=== PATIENT | female | born 1995 | race Two or more races ===

== ENCOUNTER 2019-03-08 21:01 | Emergency (ER) | payer OTHER, SELFPAY ==
[~2019-03-08] VITALS: Ht 167.6 cm; Wt 69.9 kg
[~2019-03-08 21:01] MED LIST: CIPRO500 MG PO; FERROUS SULFAT325 MG ORAL
[2019-03-08] MEDS ORDERED: NKM (21:09)
[2019-03-08 21:20] VITALS: BP 138/73
--- NOTE | 2019-03-08 21:20 | NUR ---
ER Nurse Note: Pt came from home c/o HR of 110. Pt stated she has off and on palpitations and was worried about the causes of this. Pt denies chest pain but complains about discomfort and a funny feeling in chest. Pt stated this has been happening for few months. Pt a&ox4, VSS, on RA, no signs of distress. HR in triage, 85bpm. Will continue to montior.
--- NOTE | 2019-03-08 21:22 | Emergency Room Report ---
History of Present Illness General Chief Complaint: General Complaint Source: Patient Present Illness HPI This is a 23-year-old female with history of anemia in the past. She presents with chief complaint of palpitation. His been intermittently the last couple months. She does not have any symptoms now. She denies any fever chills. Denies any nausea vomiting. No lightheadedness or syncopal episode. Has not seen a primary care doctor for this. Allergies: Coded Allergies: No Known Allergies (Unverified , 09/11/14) Patient History Past Medical History: none, see triage record, old chart reviewed Past Surgical History: none Pertinent Family History: none Social History: Denies: smoking Last Menstrual Period: 02/08/19 Now: No Immunizations: other Reviewed Nursing Documentation: PMH: Agreed; PSxH: Agreed Nursing Documentation-PMH Past Medical History: No Stated History Review of Systems Eye: Denies: eye pain, blurred vision ENT: Denies: ear pain, nose congestion, throat swelling Respiratory: Denies: cough, shortness of breath Cardiovascular: Reports: palpitations; Denies: chest pain Gastrointestinal: Denies: abdominal pain, diarrhea, nausea, vomiting Musculoskeletal: Denies: back pain, joint pain Skin: Denies: rash Neurological: Denies: headache, numbness Endocrine: Denies: increased thirst, increased urine Hematologic/Lymphatic: Denies: easy bruising All Other Systems: negative except mentioned in HPI Physical Exam Vital Signs Date Time Temp Pulse Resp B/P (MAP) Pulse Ox O2 Delivery O2 Flow Rate FiO2 03/08/19 21:03 98.4 85 18 98 Room Air vitals normal Sp02 EP Interpretation: reviewed, normal General Appearance: well appearing, no apparent distress, alert Head: normocephalic, atraumatic Eyes: bilateral eye PERRL, bilateral eye EOMI ENT: hearing grossly normal, normal pharynx Neck: full range of motion, supple, no meningismus Respiratory: chest non-tender, lungs clear, normal breath sounds Cardiovascular #1: regular rate, rhythm, no murmur Gastrointestinal: normal bowel sounds, non tender, no mass, no organomegaly, no bruit, non-distended Musculoskeletal: back normal, gait/station normal, normal range of motion Psychiatric: mood/affect normal Skin: warm/dry Medical Decision Making Diagnostic Impression: Primary Impression: Palpitations ER Course Patient presents with palpitation. Heart rate normal here. Since sinus. No ectopies. She may need a Holter monitor. We'll discharge home. EKG Diagnostic Results Rate: normal Rhythm: NSR ST Segments: no acute changes ASA given to the pt in ED: No Last Vital Signs Date Time Temp Pulse Resp B/P (MAP) Pulse Ox O2 Delivery O2 Flow Rate FiO2 03/08/19 21:03 98.4 85 18 98 Room Air Status: improved Disposition: HOME, SELF-CARE Condition: Stable Additional Instructions: Follow-up with your doctor in a week. You may need a referral to see a director statistical programming for a Holter monitor. Return if symptom worsen. Andrew Virgen MD March 08, 2019 21:22
[2019-03-08] MEDS ORDERED: Bacitracin Oint UD TOPIC ONE (21:31)
[2019-03-08 21:55] LABS: APPEARANCE,URINE CLEAR; BILIRUBIN, URINE NEGATIVE (NEGATIVE); COLOR,URINE PALE YELLOW; GLUCOSE, URINE (UA) NEGATIVE (NEGATIVE); KETONES,URINE NEGATIVE (NEGATIVE); LEUKOCYTE ESTERASE ,URINE 1+ (NEGATIVE); NITRITE,URINE NEGATIVE (NEGATIVE); PH,URINE 6 (4.5-8.0); PROTEIN,URINE NEGATIVE (NEGATIVE); UROBILINOGEN,URINE NORMAL MG/DL (0.0-1.0)
[2019-03-08 21:57] LABS: BASOPHILS % (AUTO) 1.7 % (0.0-2.0); HEMATOCRIT 36.4 % (37.0-47.0); HEMOGLOBIN 12.5 G/DL (12.0-16.0); LYMPHOCYTES % (AUTO) 24.3 % (20.0-45.0); MEAN CORPUSCULAR VOLUME 85 FL (80-99); MONOCYTES % (AUTO) 13.7 % (1.0-10.0); NEUTROPHILS % (AUTO) 59.3 % (45.0-75.0); PLATELET COUNT 256 K/UL (150-450); RED BLOOD COUNT 4.28 M/UL (4.20-5.40); RED CELL DISTRIBUTION WIDTH 11.9 % (11.6-14.8); WHITE BLOOD COUNT 10.7 K/UL (4.8-10.8)
[2019-03-08 22:30] VITALS: BP 148/74
--- NOTE | 2019-03-08 22:30 | NUR ---
ER Nurse Note: All orders completed per ERMD orders. Pt seen, treated, medically cleared for discharge by ERMD. Discharge instructions and prescriptions given with repeat verbazliaion by pt. Instructed pt to follow up with primary care provider within one week. Pt a&ox4, VSS, no signs of distress; denies chest pain and HR 82. ID band removed. IV removed; site clean and bandaged. Pt left with all belongings with steady gait via own transportation.
[2019-03-09 03:16] VITALS: BP 148/74
--- NOTE | 2019-03-09 17:35 | Cardiology Report ---
APPROVED REPORT EKG Measurement Heart [id number] Normal sinus rhythm with sinus arrhythmia Normal ECG
== END 2019-03-08 22:30 | disposition home or self-care (01) ==
LOC: EMR 21:30
DX: R00.2 Palpitations (principal)
CPT/HCPCS: 36415; 81003; 81025; 85025; 93005; 99283

== ENCOUNTER 2019-08-24 18:11 | Emergency (ER) | payer OTHER ==
[~2019-08-24] VITALS: Ht 167.6 cm; Wt 70.3 kg
[~2019-08-24 18:11] MED LIST changes: +NKM
[2019-08-24 18:17] VITALS: BP 127/78
--- NOTE | 2019-08-24 18:17 | NUR ---
ED Nurse Note: Patient walked into Ed c/o flu like symptoms for the past week, patient states that she had an elevated temp of 100.2 earlier this morning, patient states that he took tylenol earlier, at time of arrival patient does not present with a fever however is complaining of generalized weakness accompanied by a productive cough, patient does present with an elevated heart rate of 108. patient is resting in hallway bed in no distress, complains of a mild headache that she rates a 3/10 pain. will continue to monitor
[2019-08-24 18:45] VITALS: BP 127/78
--- NOTE | 2019-08-24 18:45 | NUR ---
ER DISCHARGE NOTE: Patient is cleared to be discharged per ERMD, pt is aox4, on room air, with stable vital signs. pt was given dc and prescription instructions, pt was able to verbalize understanding, pt id band removed without complications. pt is able to ambulate with steady gait. pt took all belongings.
--- NOTE | 2019-08-24 19:08 | Emergency Room Report ---
History of Present Illness General Chief Complaint: Flu Like Symptoms Source: Patient Present Illness HPI 24 YO Female presents to the ED c/o persistent cough x 1 week with new onset of fever of 100.2 at home and 3/10 in severity body aches with chills. Pt. reports sister has similar symptoms. Denies recent travel. Denies smoking hx, reports hx of asthma as a child. Pt. is UTD with vaccinations except for the flu vaccine. NO aggravating or relieving factors. Denies neck pain/stiffness, ear pain, ST, runny nose or nasal congestion. Allergies: Coded Allergies: PENICILLINS (Verified Allergy, Unknown, 08/24/19) Patient History Past Medical History: see triage record Past Surgical History: none Pertinent Family History: none Last Menstrual Period: 07/28/19 Immunizations: UTD Reviewed Nursing Documentation: PMH: Agreed; PSxH: Agreed Nursing Documentation-PMH Past Medical History: No Stated History Review of Systems All Other Systems: negative except mentioned in HPI Physical Exam Vital Signs Date Time Temp Pulse Resp B/P (MAP) Pulse Ox O2 Delivery O2 Flow Rate FiO2 08/24/19 18:14 99.3 108 16 127/78 (94) 97 Room Air Sp02 EP Interpretation: reviewed, normal General Appearance: well appearing, no apparent distress, alert, GCS 15, non- toxic Head: normocephalic, atraumatic Eyes: bilateral eye normal inspection, bilateral eye PERRL ENT: hearing grossly normal, normal pharynx, normal voice, TMs + canals normal , uvula midline, moist mucus membranes Neck: full range of motion, no meningismus, no bony tend Respiratory: chest non-tender, lungs clear, normal breath sounds, no respiratory distress, no accessory muscle use, no wheezing, speaking full sentences Cardiovascular #1: regular rate, rhythm, tachycardia Musculoskeletal: back normal, gait/station normal, normal range of motion, non- tender Neurologic: alert, oriented x3, responsive, motor strength/tone normal, sensory intact, normal gait, speech normal, grossly normal Psychiatric: judgement/insight normal Skin: no rash Lymphatic: no adenopathy Medical Decision Making PA Attestation Dr. Brown is my supervising Physician whom patient management has been discussed with. Diagnostic Impression: Primary Impression: Viral upper respiratory tract infection with cough ER Course 24 YO Female presents to the ED c/o persistent cough x 1 week with new onset of fever of 100.2 at home and 3/10 in severity body aches with chills. Pt. reports sister has similar symptoms. Denies recent travel. Denies smoking hx, reports hx of asthma as a child. Pt. is UTD with vaccinations except for the flu vaccine. NO aggravating or relieving factors. Denies neck pain/stiffness, ear pain, ST, runny nose or nasal congestion. Ddx considered but are not limited to URI, pneumonia, PE, strep pharyngitis, meningitis. Vital signs: Pt. is afebrile, she has mild tachycardia at 108bpm in triage, the remaining VS are WNL H&PE are most consistent with URI- no meningeal signs, oropharynx is not involved, no evidence of bacterial infection at this time. ORDERS: none required at this time, the diagnosis is clinical ED INTERVENTIONS: None required at this time. --PT. EDUCATION: Discussed antibiotic resistance with inappropriate prescribing of antibiotics for viral illnesses. Discussed signs and symptoms to indicate viral illness versus bacterial illness. DISCHARGE: At this time pt. is stable for d/c to home. Will provide printed patient care instructions, and any necessary prescriptions. Care plan and follow up instructions have been discussed with the patient prior to discharge. Last Vital Signs Date Time Temp Pulse Resp B/P (MAP) Pulse Ox O2 Delivery O2 Flow Rate FiO2 08/24/19 18:14 99.3 108 16 127/78 (94) 97 Room Air Disposition: HOME, SELF-CARE Condition: Stable Scripts Ibuprofen* (MOTRIN*) 600 Mg Tablet 600 MG ORAL THREE TIMES A DAY, #30 TAB 0 Refills Prov: Claritza Gomes 08/24/19 Benzonatate* (TESSALON PERLE*) 100 Mg Capsule 100 MG ORAL THREE TIMES A DAY, #15 PERLE Prov: Claritza Gomes 08/24/19 Albuterol Sulfate* (ALBUTEROL SULFATE MDI*) 8.5 Gm Hfa.aer.ad 2 PUFF INH Q6H, #1 INH 0 Refills Prov: Claritza Gomes 08/24/19 Codeine/Promethazine Hcl* (PROMETHAZINE-CODEINE SYRUP*) 118 Ml Syrup 5 ML ORAL Q6H PRN for For Cough, #120 ML 0 Refills Prov: Claritza Gomes 08/24/19 Departure Forms: Return to Work Return to Work Date: Aug 28, 2019 Work Restrictions: None Other Restrictions: May return Sooner if Symptoms have resolved. Return to Full Activity: Aug 28, 2019 Patient Instructions: Viral Respiratory Infection Additional Instructions: Take medications as directed. Follow up with a Primary Care Provider in 3-5 days, even if your symptoms have resolved. --Please review list of primary care clinics, if you do not already have a primary care provider Return sooner to ED if new symptoms occur, or current symptoms become worse. Do not drink alcohol, drive, or operate heavy machinery while taking Cough Syrup as this may cause drowsiness. - Please note that this Emergency Department Report was dictated using [employer] administrative services technology software, occasionally this can lead to erroneous entry secondary to interpretation by the dictation equipment. Claritza Gomes Aug 24, 2019 19:08
[2019-08-24] MEDS ORDERED: IBUPROFEN600 MG ORAL (19:09)
[2019-08-24] MEDS ORDERED: PROMETHAZINE-C118 M1 ORAL (19:09)
[2019-08-24] MEDS ORDERED: ALBUTEROL SULF8.5 GM INH (19:09)
[2019-08-24] MEDS ORDERED: TESSALON PERLE100 MG ORAL (19:09)
== END 2019-08-24 19:45 | disposition home or self-care (01) ==
LOC: EMR 19:20
DX: J06.9 Acute upper respiratory infection, unspecified (principal); B97.89 Other viral agents as the cause of diseases classified elsewhere; Z88.0 Allergy status to penicillin
CPT/HCPCS: 99282

== ENCOUNTER 2019-12-29 19:27 | Emergency (ER) | payer OTHER ==
[~2019-12-29] VITALS: Ht 167.6 cm; Wt 71.2 kg
[~2019-12-29 19:27] MED LIST changes: +ALBUTEROL SULF8.5 GM INH; +IBUPROFEN600 MG ORAL; +PROMETHAZINE-C118 M1 ORAL; +TESSALON PERLE100 MG ORAL
[2019-12-29 19:35] VITALS: BP 131/67
--- NOTE | 2019-12-29 19:35 | NUR ---
ED Nurse Note: Pt denies , does not want test.
--- NOTE | 2019-12-29 19:35 | NUR ---
ED Nurse Note: Pt walked into ED from home for c/o abdominal pain, nausea and 1x episode diarrhea. Pt is aaox4, no cardiac or respiratory distress noted. Pt states she also felt like she was going to pass out, no LOC.
[2019-12-29] MEDS ORDERED: ZOFRAN4 MG ORAL (19:41)
--- NOTE | 2019-12-29 19:41 | Emergency Room Report ---
History of Present Illness General Chief Complaint: Abdominal Pain Source: Patient Present Illness HPI 24-year-old female presents with an acute episode of generalized abdominal pain crampy in nature alleviated by defecation she had a watery episode of diarrhea no nausea no vomiting no fevers she does endorse some chills no known aggravating factors severity is mild patient presents for evaluation Allergies: Coded Allergies: PENICILLINS (Verified Allergy, Unknown, 08/24/19) Patient History Past Medical History: see triage record Last Menstrual Period: 12/25/19 Now: No : 0 Reviewed Nursing Documentation: PMH: Agreed; PSxH: Agreed Nursing Documentation-PM Past Medical History: No History, Except For Hx Asthma: Yes Review of Systems All Other Systems: negative except mentioned in HPI Physical Exam Vital Signs Date Time Temp Pulse Resp B/P (MAP) Pulse Ox O2 Delivery O2 Flow Rate FiO2 12/29/19 19:30 98.1 86 18 131/67 (88) 98 Room Air Sp02 EP Interpretation: reviewed, normal General Appearance: well appearing, no apparent distress, alert Head: normocephalic, atraumatic Eyes: bilateral eye PERRL, bilateral eye EOMI ENT: uvula midline, moist mucus membranes Neck: supple, thyroid normal, supple/symm/no masses Respiratory: lungs clear, no respiratory distress, no retraction, no accessory muscle use Cardiovascular #1: normal peripheral pulses, regular rate, rhythm, no edema, no gallop, no murmur Gastrointestinal: non tender, soft, no guarding, no rebound Musculoskeletal: normal inspection Neurologic: alert, oriented x3 Psychiatric: mood/affect normal Skin: no rash, warm/dry Medical Decision Making Diagnostic Impression: Primary Impression: Viral gastroenteritis ER Course 23-year-old female states she is currently on her period, had an episode of diarrhea deferred a test additionally patient felt lightheaded when she defecated, most likely a viral gastroenteritis strict return precautions for appendicitis were given, abdomen soft nontender no rebound no guarding no evidence of an acute abdomen Disposition home with return precautions antinausea medications were provided Last Vital Signs Date Time Temp Pulse Resp B/P (MAP) Pulse Ox O2 Delivery O2 Flow Rate FiO2 12/29/19 19:30 98.1 86 18 131/67 (88) 98 Room Air Disposition: HOME, SELF-CARE Condition: Stable Scripts Ondansetron (Zofran) 4 Mg Tablet 4 MG ORAL Q8H PRN for Nausea & Vomiting, #10 TAB 0 Refills Prov: Kingston Lopez MD 12/29/19 Referrals: [facility]. [facility] Patient Instructions: Abdominal Pain, Adult, Viral Gastroenteritis, Adult Additional Instructions: The patient was provided with discharge instructions, notified to follow-up with a primary care doctor and or specialist in the next 24-48 hours, and to return to the ED if they have worsening of their symptoms. Please note that this report is being documented using [employer] technology. This can lead to erroneous entry secondary to incorrect interpretation by the dictating instrument. Kingston Lopez MD Dec 29, 2019 19:41
--- NOTE | 2019-12-29 19:45 | NUR ---
ER DISCHARGE NOTE: Patient is cleared to be discharged per ERMD, pt is aox4, on room air, with stable vital signs. pt was given dc and prescription instructions, pt was able to verbalize understanding, pt id band removed. pt is able to ambulate with steady gait. pt took all belongings and accompanied by sister.
== END 2019-12-29 19:55 | disposition home or self-care (01) ==
LOC: EMR 19:53
DX: A08.4 Viral intestinal infection, unspecified (principal); J45.909 Unspecified asthma, uncomplicated; Z88.0 Allergy status to penicillin
CPT/HCPCS: 99281